=== PATIENT | female | born 1970 | race Caucasian/White ===

== ENCOUNTER 2022-05-12 08:03 | Emergency (ER) | payer BC, SELFPAY ==
[2022-05-12 08:08] VITALS: BP 195/100; PULSE 85; RESP 22; TEMP 36.3; O2SAT 100; BMI 41.3
--- NOTE | 2022-05-12 08:25 | XRR_ITS ---
PROCEDURE INFORMATION: Exam: XR Chest Exam date and time: 05/12/2022 8:46 AM Age: 51 years old Clinical indication: Pain; Chest pressure; Additional info: Cp TECHNIQUE: Imaging protocol: Radiologic exam of the chest. Views: 1 view. COMPARISON: No relevant prior studies available. FINDINGS: Lungs: Unremarkable. No consolidation. Pleural spaces: Unremarkable. No pleural effusion. No pneumothorax. Heart/Mediastinum: Unremarkable. No cardiomegaly. Bones/joints: Unremarkable. XR/XR chest 1V portable [id number] IMPRESSION: No acute findings.
--- NOTE | 2022-05-12 08:26 | ECG_ITS ---
[facility] Test Date: 2022-05-12 Pat Name: Toya Holden Department: Room: Gender: Female Spreader: : 1970 Requested By: Sanju Bess Order Number: [id number] Trisha MD: Donaldo Baxter M.D. Measurements Intervals [place] Rate: 71 P: 19 RI: 154 QRS: 8 QRSD: 80 T: 4 QT: 390 QTc: 426 Interpretive Statements SINUS RHYTHM INTERPRETATION BASED ON A DEFAULT AGE OF 40 YEARS No previous ECG available for comparison Electronically Signed On 05-12-2022 10:37:15 CDT by Donaldo Baxter M.D. [email or web address] [id number] f
--- NOTE | 2022-05-12 08:31 | ED_ITS ---
HPI - Chest Pain General: Chief Complaint: Chest Pain Stated Complaint: chest pain Time Seen by Provider: 05/12/22 08:20 History of Present Illness: 51-year-old female presents with Chest discomfort that may in the middle and in the upper epigastric region. Patient reports that started on 430 this morning. That is kind that just generalized 9 specific pressure type that also has pain in epigastric region right upper quadrant that radiates to her back and a little bit up to her shoulder. Patient still has her gallbladder. She has some nausea but no vomiting. No diarrhea. Patient denies any cough, fever, chills. Associated symptoms: Reports abdominal pain and nausea; Deny dyspnea, fever(s), palpitations, syncope or vomiting Review of Systems Const: Reports: malaise; Denies: fever(s) or chills Eyes: Denies: change in vision or blurry vision ENMT: Denies: throat pain or ear or mastoid pain Card: Reports: chest pain; Denies: palpitations, irregular heart rhythm, lightheadedness or syncope Resp: Denies: dyspnea, productive cough or chest congestion GI: Reports: abdominal pain and nausea; Denies: vomiting or diarrhea : Denies: difficulty voiding or urinary frequency Musc: Reports: back pain Skin/Breast: Denies: rash or pruritus Neuro: Denies: headache(s) or weakness in extremities Psych: Denies: anxiety or depression All/Imm: Denies: urticaria or throat swelling Physical Exam Const: COMMON NORMALS: no acute distress and patient oriented x3 GENERAL APPEARANCE: cooperative NUTRITIONAL APPEARANCE: obese centrally obese HENMT: COMMON NORMALS: normocephalic and hearing grossly normal bilaterally HEAD & SCALP: normocephalic Eye: COMMON NORMALS: Equal, round and reactive pupils present and EOMs intact bilaterally PUPIL: Yes Equal, round and reactive pupils present Neck/C-Spine: COMMON NORMALS: full ROM, supple and no JVD Resp: COMMON NORMALS: normal respiratory effort, No retractions, No use of accessory muscles and clear to auscultation bilaterally EFFORT & INSPECTION: Yes able to speak in complete sentences AUSCULTATION: clear to auscultation bilaterally Cardio: COMMON NORMALS: no JVD, regular rate and regular rhythm RATE: regular rate RHYTHM: regular rhythm GI: COMMON NORMALS: Soft to palpation PALPATION: Yes Soft to palpation and Yes Tenderness to palpation present (GI) Details: RUQ Extremity: COMMON NORMALS: normal to inspection, full ROM and capillary refill normal Neuro: COMMON NORMALS: patient oriented x3, moves all extremities and no focal motor deficits Psych: COMMON NORMALS: mental status grossly normal, Normal thought process present and cooperative THOUGHT PROCESS: Normal thought process present Skin: COMMON NORMALS: no rashes or lesions noted and turgor normal GENERAL SKIN EXAM: no rashes or lesions noted and turgor normal Course Vital Signs: Vital signs: Vital Signs Temperature 97.4 F L 05/12/22 08:08 Pulse Rate 69 05/12/22 12:34 Respiratory Rate 16 05/12/22 12:34 Blood Pressure 174/80 05/12/22 12:34 Pulse Oximetry 99 05/12/22 12:34 Oxygen Delivery Me thod 05/12/22 12:34 MDM - Chest Pain Medical Decision Making Patient with nonspecific epigastric/chest/right upper quadrant pain. Patient slight elevation of her AST ALT and alk phos. Patient with no white count. Slight elevation of CRP. Patient with a negative ultrasound gallbladder. Patient is negative for COVID. Patient's symptoms are likely as result of a viral syndrome versus may be some gastritis/enteritis. Patient with negative troponin x2. Vital signs with 100% room air pulse 69 no calf tenderness does not indicate further evaluation for PE as a cause of her chest pain. Patient with a negative chest x-ray. Discussed findings with patient. We will give her a GI cocktail just prior to her discharge as she does not want a wait to see if it helps. Recommended she take Pepcid twice daily. She should follow-up with her primary care provider for further evaluation if her symptoms or not improving. Patient was stable upon discharge Lab Data : 05/12/22 08:25 05/12/22 08:55 Radiology Impressions Chest X-Ray 05/12/22 08:25 IMPRESSION: No acute findings. Gallbladder Ultrasound 05/12/22 09:45 IMPRESSION: 1. Hepatomegaly, fatty liver. 2. Normal gallbladder and bile ducts. Laboratory Results WBC 7.4 10^3/uL (4.0-10.0) 05/12/22 08:25 RBC 4.94 10^6/uL (4.1-5.3) 05/12/22 08:25 Hgb 14.4 g/dL (11.5-15.3) 05/12/22 08:25 Hct 43.7 % (37.0-47.0) 05/12/22 08:25 MCV 88.5 fl (81-99) 05/12/22 08:25 MCH 29.1 pg (28.0-34.0) 05/12/22 08:25 MCHC 33.0 g/dL (30.0-36.0) 05/12/22 08:25 RDW 12.9 % (12.1-15.1) 05/12/22 08:25 Plt Count 205 10^3/cmm (130-400) 05/12/22 08:25 MPV 11.1 fL (7.4-10.4) H 05/12/22 08:25 Neut % (Auto) 74.0 % 05/12/22 08:25 Lymph % (Auto) 18.9 % 05/12/22 08:25 [place] % (Auto) 5.7 % 05/12/22 08:25 Eos % (Auto) 0.9 % 05/12/22 08:25 Baso % (Auto) 0.4 % 05/12/22 08:25 Neut # (Auto) 5.48 10^3/uL (1.8-7.7) 05/12/22 08:25 Lymph # (Auto) 1.4 10^3/uL (0.8-4.8) 05/12/22 08:25 [place] # (Auto) 0.4 10^3/uL (0.2-0.9) 05/12/22 08:25 Eos # (Auto) 0.1 10^3/uL (0.0-0.8) 05/12/22 08:25 Baso # (Auto) 0.0 10^3/uL (0.0-0.1) 05/12/22 08:25 Nucleated RBC % (auto) 0 % 05/12/22 08:25 Nucleated RBCs # 0.0 /100WBC 05/12/22 08:25 Sodium 142 mmol/L (136-145) 05/12/22 08:55 Potassium 4.1 mmol/L (3.5-5.1) 05/12/22 08:55 Chloride 105 mmol/L (98-107) 05/12/22 08:55 Carbon Dioxide 26 mmol/L (22-29) 05/12/22 08:55 Anion Gap 15.1 (5-19) 05/12/22 08:55 BUN 11 mg/dL (6-20) 05/12/22 08:55 Creatinine 0.9 mg/dL (0.5-0.9) 05/12/22 08:55 GFR Calculation 65.8 mL/min (90-130) L 05/12/22 08:55 Glucose 124 mg/dL (65-115) H 05/12/22 08:55 Calculated Osmolality 295 mOsm/kg (285-295) 05/12/22 08:55 Calcium 9.4 mg/dL (8.5-10.5) 05/12/22 08:55 Magnesium 2.2 mg/dL (1.7-2.3) 05/12/22 08:55 Total Bilirubin 1.0 mg/dL (0.15-1.2) 05/12/22 08:55 AST 154 U/L (0-32) H 05/12/22 08:55 ALT 80 U/L (0-33) H 05/12/22 08:55 Alkaline Phosphatase 133 IU/L (35-105) H 05/12/22 08:55 Troponin T Baseline 6 ng/L (0-10) 05/12/22 08:55 Troponin T 120 Minute 6.00 ng/L (0-10) 05/12/22 11:03 Delta Troponin T 0 ABS# (0-10) 05/12/22 11:03 C-Reactive Protein 6.4 mg/L (0.0-4.9) H 05/12/22 08:55 Total Protein 7.1 g/dL (6.6-8.7) 05/12/22 08:55 Albumin 4.0 g/dL (3.5-5.2) 05/12/22 08:55 Globulin 3.1 g/dL (1.3-4.6) 05/12/22 08:55 Lipase 24 U/L (13-60) 05/12/22 08:55 Urine Color Yellow (Yellow) 05/12/22 10:15 Urine Appearance Sl hazy (CLEAR) 05/12/22 10:15 Urine pH 8 (5-7) H 05/12/22 10:15 Ur Specific [place] 1.010 (1.005-1.030) 05/12/22 10:15 Urine Protein Neg (Negative) 05/12/22 10:15 Urine Glucose (UA) Norm (Normal) 05/12/22 10:15 Urine Ketones Negative (Negative) 05/12/22 10:15 Urine Blood Neg (Negative) 05/12/22 10:15 Urine Nitrate Negative (Negative) 05/12/22 10:15 Urine Bilirubin Neg (Negative) 05/12/22 10:15 Prot Sulfosalicylic Acd Negative (Negative) 05/12/22 10:15 Urine Urobilinogen 4 mg/dL (Negative) H 05/12/22 10:15 Ur Leukocyte Esterase Negative (Negative) 05/12/22 10:15 Urine RBC None /hpf (0-2) 05/12/22 10:15 Urine WBC None /hpf (0-5) 05/12/22 10:15 Ur Squamous Epith Cells 0-4 /hpf (0-5) H 05/12/22 10:15 Amorphous Sediment Not Reportable 05/12/22 10:15 Urine Bacteria Trace /hpf (NONE) 05/12/22 10:15 Urine Mucus 1+ /hpf 05/12/22 10:15 SARS-CoV-2 Ag (Rapid) Negative (Negative) 05/12/22 09:10 EKG Data EKG 1: Interpretation: Normal sinus rhythm, heart rate 71, MN interval 154, QTc 413, normal EKG Discharge Plan Discharge Patient Disposition: Home Clinical Impression: Right upper quadrant abdominal pain, Atypical chest pain Condition: Stable Discharge Orders: Discharge ED (Routine); Ordered 05/12/22 Ordered By: Sanju Bess Discharge Diet: Advance as tolerated Discharge Activity: Resume usual activity Patient Instructions: Chest Pain - Noncardiac, Abdominal Pain (ED), Opioid Safety Activity Restrictions/Additional Instructions: Pepcid 20 mg twice daily Follow-up with your primary care provider if symptoms continue over the next couple days and do not improve Coding Level of Care Code ED Home Economics Expert for Chg Fwd Exam Comprehensive
[2022-05-12 08:36] LABS: Basophils % 0.4 %; Eosinophils # 0.1 10^3/uL (0.0-0.8); Eosinophils % 0.9 %; Hematocrit 43.7 % (37.0-47.0); Hemoglobin 14.4 g/dL (11.5-15.3); Lymphocytes # 1.4 10^3/uL (0.8-4.8); Lymphocytes % 18.9 %; Mean Corpuscular Hemoglobin 29.1 pg (28.0-34.0); Mean Corpuscular Volume 88.5 fl (81-99); Mean Platelet Volume 11.1 fL (7.4-10.4); Monocytes # 0.4 10^3/uL (0.2-0.9); Monocytes % 5.7 %; Neutrophils # 5.48 10^3/uL (1.8-7.7); Nucleated Red Blood Cells % 0 %; Platelet Count 205 10^3/cmm (130-400); Red Blood Count 4.94 10^6/uL (4.1-5.3); Red Cell Distribution Width 12.9 % (12.1-15.1); White Blood Count 7.4 10^3/uL (4.0-10.0)
[2022-05-12 08:49] VITALS: RESP 16; O2SAT 100
[2022-05-12] MEDS: ondansetron 2 mg/ML SDV 2 mL 4 MG IVP (08:49)
[2022-05-12] MEDS: fentaNYL 50 mcg/mL INJ 2mL IVP (08:49)
[2022-05-12 09:00] VITALS: BP 171/98; PULSE 68; RESP 14; O2SAT 96
[2022-05-12 09:30] LABS: Troponin(5th) Baseline 6 ng/L (0-10)
[2022-05-12 09:31] VITALS: BP 129/95; PULSE 61; RESP 15; O2SAT 98
[2022-05-12 09:32] LABS: Alanine Aminotransferase 80 U/L (0-33); Alkaline Phosphatase 133 IU/L (35-105); Anion Gap 15.1 (5-19); Aspartate Amino Transferase 154 U/L (0-32); Blood Urea Nitrogen 11 mg/dL (6-20); C Reactive Protein 6.4 mg/L (0.0-4.9); Calcium 9.4 mg/dL (8.5-10.5); Carbon Dioxide 26 mmol/L (22-29); Chloride 105 mmol/L (98-107); Globulin 3.1 g/dL (1.3-4.6); Glomerular Filtration Rate 65.8 mL/min (90-130); Glucose 124 mg/dL (65-115); Lipase 24 U/L (13-60); Magnesium 2.2 mg/dL (1.7-2.3); Osmolality Calculated 295 mOsm/kg (285-295); Potassium 4.1 mmol/L (3.5-5.1); Sodium 142 mmol/L (136-145); Total Protein 7.1 g/dL (6.6-8.7)
--- NOTE | 2022-05-12 09:45 | USR_ITS ---
PROCEDURE INFORMATION: Exam: US Abdomen, Limited; Right Upper Quadrant Exam date and time: 05/12/2022 9:53 AM Age: 51 years old Clinical indication: Abdominal pain; Acute; Patient HX: Ruq pain; Additional info: Ruq pain, abnormal lab TECHNIQUE: Imaging protocol: Real time ultrasound of the abdomen with image documentation. Limited exam focused on the right upper quadrant. COMPARISON: No relevant prior studies available. FINDINGS: Liver: Fatty liver. Hepatomegaly. The liver measures 21 cm in length. Gallbladder: Normal. No gallstones. There is no gallbladder wall thickening. Biliary ducts: Normal. No stones. No dilation. Pancreas: Visualized pancreas is unremarkable. Right kidney: Normal. No mass. No hydronephrosis. Aorta: The abdominal aorta is unremarkable. Inferior vena cava: Normal. US/US gall bladder [id number] IMPRESSION: 1. Hepatomegaly, fatty liver. 2. Normal gallbladder and bile ducts.
--- NOTE | 2022-05-12 10:28 | ECG_ITS ---
[facility] Test Date: 2022-05-12 Pat Name: Toya Holden Department: Room: Gender: Female Academic Hospitalist: : 1970 Requested By: Sanju Bess Order Number: [id number] Trisha MD: Donaldo Baxter M.D. Measurements Intervals [place] Rate: 57 P: 18 [place]: 136 QRS: 10 QRSD: 84 T: 24 QT: 428 QTc: 418 Interpretive Statements SINUS BRADYCARDIA WITH SINUS ARRHYTHMIA Compared to ECG 05/12/2022 08:18:36 Sinus rhythm no longer present Electronically Signed On 05-12-2022 10:39:37 CDT by Donaldo Baxter M.D. [email or web address] [id number]
[2022-05-12 10:30] VITALS: PULSE 69; RESP 15; O2SAT 100
[2022-05-12 11:42] LABS: Troponin 5 2HR Delta 0 ABS# (0-10)
[2022-05-12 11:45] LABS: SARS Covid-2 Antigen Negative (Negative)
[2022-05-12 11:49] LABS: Bilirubin Urine Neg (Negative); Blood Urine Neg (Negative); Glucose Urine UA Norm (Normal); Ketones Urine Negative (Negative); Leukocyte Esterase Urine Negative (Negative); Nitrate Urine Negative (Negative); Protein Urine Neg (Negative); Sulfosalicylic Acid Urine Negative (Negative); Urine Appearance SL Hazy (CLEAR); Urine Color Yellow (Yellow); Urobilinogen Urine 4 mg/dL (Negative); pH Urine 8 (5-7)
[2022-05-12 11:54] LABS: Add Urine Microscopic? YES
[2022-05-12 11:55] LABS: Bacteria Urine TRACE /hpf; Squamous Epithelial Cell Urine 0-4 /hpf (0-5)
[2022-05-12 11:56] LABS: Add Urine Culture? No; Mucus Urine 1+ /hpf
[2022-05-12] MEDS: lidocaine 2% viscous 15 ML, aluminum-mag hydrox-simethicon 30 ML, sucralfate oral liq 1 GM PO (12:23)
[2022-05-12 12:34] VITALS: BP 174/80; PULSE 69; RESP 16; O2SAT 99
== END 2022-05-12 12:30 | disposition home or self-care (01) ==
PROVIDERS: Emergency Provider Student in an Organized Health Care Education/Training Program
DX: R07.89 Other chest pain (principal); R10.11 Right upper quadrant pain; Z20.822 Contact with and (suspected) exposure to COVID-19
CPT/HCPCS: 36415; 71045; 76705; 80053; 81001; 83690; 83735; 84484; 85025; 86140; 87426; 93005; 96374; 96375; 99285; J2405; J3010